=== PATIENT | male | born 1980 | race Caucasian/White ===

== ENCOUNTER 2017-07-12 23:35 | Emergency (ER) | payer SELFPAY ==
[~2017-07-12] VITALS: Ht 172.7 cm; Wt 62.7 kg
[2017-07-12 23:41] VITALS: BP 96/54
--- NOTE | 2017-07-13 01:40 | NUR ---
PT.AMBULATED TO ER [facility]
--- NOTE | 2017-07-13 01:45 | NUR ---
37Y/M PT. PRESESNTS TO ED WITH C/O LT. FORARM CELLULITIS. PT. STATES 7/10 PAIN TO LT FOREARM S/P BUG BITE YESTERDAY. LT FOREARM WARM TO TOUCH, WITH EDEMA AND EYTHEMA NOTED. DENIES FEVER/CHILLS, N/V/D. DENIES PMH/RX, TOOK TYLENOL AT 1700 . AAO X4, AMBULATORY WITH STEADY GAIT. VSS, ER MADE AWARE OF PT. STATUS.
[2017-07-13] MEDS ORDERED: CEPHALEXIN 500 MG CAP PO ONE (02:05)
[2017-07-13] MEDS ORDERED: SULFAMETH/TRIMETH DS 800/160MG 1 TAB PO ONE (02:05)
[2017-07-13 02:25] VITALS: BP 102/58
--- NOTE | 2017-07-13 02:25 | NUR ---
Patient discharged with v/s stable. Written and verbal after care instructions given and explained. Patient alert, oriented and verbalized understanding of instructions. Ambulatory with steady gait. All questions addressed prior to discharge. ID band removed. Patient advised to follow up with PMD. Rx of KEFLEX AND BACTRIM given. Patient educated on indication of medication including possible reaction and side effects. Opportunity to ask questions provided and answered.
== END 2017-07-13 02:25 | disposition home or self-care (01) ==
LOC: MED 23:35
DX: L03.114 Cellulitis of left upper limb (principal)
CPT/HCPCS: 99283

== ENCOUNTER 2022-11-06 01:20 | Emergency (ER) | payer MEDICAID ==
[~2022-11-06] VITALS: Ht 175.3 cm; Wt 63.5 kg
[2022-11-06 01:30] VITALS: BP 108/59; PULSE 81; RESP 14; TEMP 96.6; O2SAT 99
--- NOTE | 2022-11-06 09:23 | NUR ---
PATIENT BIB [employer]. PATIENT EXAMINED BY DR. GREGG. PATIENT MEDICALLY CLEARED AND RELEASED IN CUSTODY IN STABLE CONDITION. ORIGINAL PRE-BOOK FORM GIVEN TO OFFICER.
== END 2022-11-06 09:23 ==
LOC: MED 01:20
DX: S09.90XA Unspecified injury of head, initial encounter (principal); L72.9 Follicular cyst of the skin and subcutaneous tissue, unspecified; Y04.0XXA Assault by unarmed brawl or fight, initial encounter; Y93.89 Activity, other specified; Y92.89 Other specified places as the place of occurrence of the external cause; Y99.8 Other external cause status
CPT/HCPCS: 70450; 72125; 99284

== ENCOUNTER 2023-06-05 18:44 | Emergency (ER) | payer MEDICAID ==
[~2023-06-05] VITALS: Ht 170.2 cm; Wt 60.8 kg
[2023-06-05 18:58] VITALS: BP 122/93; PULSE 107; RESP 20; TEMP 97.9; O2SAT 96
[2023-06-05] MEDS ORDERED: IBUP-2213 PO (20:23)
[2023-06-05] MEDS: ACETAMINOPHEN EXTRA STRENGTH 500 MG TAB PO ONE (20:35)
[2023-06-05 20:45] VITALS: BP 102/72; PULSE 90; RESP 16; O2SAT 98
== END 2023-06-05 20:45 | disposition home or self-care (01) ==
LOC: MED 18:44
DX: S01.81XA Laceration without foreign body of other part of head, initial encounter (principal); F12.90 Cannabis use, unspecified, uncomplicated; Y08.89XA Assault by other specified means, initial encounter; Y93.89 Activity, other specified; Y92.89 Other specified places as the place of occurrence of the external cause; Y99.8 Other external cause status
CPT/HCPCS: 70450; 70486; 99284

== ENCOUNTER 2024-01-13 13:48 | Emergency (ER) | payer SELFPAY ==
[~2024-01-13] VITALS: Ht 170.2 cm; Wt 62.7 kg
[~2024-01-13 13:48] MED LIST: IBUP-2213 PO
[2024-01-13 14:00] VITALS: BP 120/77; PULSE 83; RESP 18; TEMP 98.5; O2SAT 98
== END 2024-01-13 14:34 | disposition home or self-care (01) ==
LOC: MED 13:48
DX: S01.81XD Laceration without foreign body of other part of head, subsequent encounter (principal); Z48.00 Encounter for change or removal of nonsurgical wound dressing; Z79.899 Other long term (current) drug therapy; X58.XXXD Exposure to other specified factors, subsequent encounter
CPT/HCPCS: 99281